=== PATIENT | male | born 1995 | race Caucasian/White ===

== ENCOUNTER 2019-06-26 12:40 | Emergency (ER) | payer OTHER, SELFPAY ==
[2019-06-26 12:44] VITALS: BP 100/72; PULSE 83; RESP 15; TEMP 36.6; O2SAT 100
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
[2019-06-26] MEDS: Ibuprofen 600 MG TAB PO (13:07)
[2019-06-26] MEDS: Acetaminophen 500 MG TAB 1000 MG PO (13:07)
== END 2019-06-26 14:03 | disposition home or self-care (01) ==
PROVIDERS: Emergency Provider Physician Assistant
DX: S43.101A Unspecified dislocation of right acromioclavicular joint, initial encounter (principal); V18.0XXA Pedal cycle driver injured in noncollision transport accident in nontraffic accident, initial encounter; Y93.55 Activity, bike riding
CPT/HCPCS: 23540; 73000; L3650